=== PATIENT | female | born 1940 | race Caucasian/White ===

== ENCOUNTER 2016-11-19 09:54 | Day surgery (SDC) | payer MEDICARE, BC ==
--- NOTE | ~2016-11-19 | OP ---
Record Of Operation [facility] [address] [address] NAME: RITA REED : 40 STATUS : [facility]#: [id number] AGE: 76 ADM/REG DATE : 11/19/16 MR#: [id number] REPORT SERV DATE: 11/28/16 DICTATED BY: VICTOR HUGO BUCKNER DATE: 11/28/16 REPORT STATUS : Draft TRANSCRIBED BY: MODL DATE: 11/28/16 DATE OF PROCEDURE: 11/19/2016 PROCEDURE PERFORMED: Fiberoptic bronchoscopy, bronchoscopy with airway inspection. INDICATIONS: Aspiration episode with sensation of aspiration of food particles. The patient has had a persistent cough since. DESCRIPTION OF PROCEDURE: After risks and benefits were explained, informed consent was obtained. The patient received conscious sedation under the care of Anesthesiology. Bronchoscope inserted nasally and advanced beyond the vocal cords without difficulty. Topical anesthesia throughout was with lidocaine. The patient did have some changes of acute bronchitis in the lower respiratory tract with hyperemia, actually worse on the left than on the right with very friable mucosa on the left. We were able to visualize up to the first-order segmental bronchi and all the lobes and even to the second order and some of the lower lobe individual segments. We performed small lavages in each segment to look for presence of retained food particles and did not find any foreign bodies. There were no samples taken. IMPRESSION: Acute bronchitis consistent with history of aspiration, though with no residual food particles or foreign bodies found. MARKO/NATHANIEL Victor Hugo Buckner M.D. / [id number] CC: Clint Richard MD
[~2016-11-19 09:54] MED LIST: BERBERINE PO; CARDCD120 PO; CAT1 PO; CO Q-10100 MG PO; CO-Q-10 OTC PO; FLAG500TAB PO; FLECAINIDE50 MG PO; HAWTHORNE PO; INDAPAMIDE1.25 MG PO; KERATIN PO; KLONO1 PO; L-CARNITINE500 M1 PO; NATURE THYROID PO; NATURE-THROI64.8 MG PO; NORV25 PO; TAURINE PO; VITE PO; [UNRECOGNIZED DRUG - OTHER] PO; [UNRECOGNIZED DRUG - OTHER] PO
[2016-12-18] MEDS ORDERED: CAT1 PO (15:42)
[2016-12-18] MEDS ORDERED: VITAMIN B PO (15:43)
[2016-12-18] MEDS ORDERED: ALIGN4 MG PO (15:43)
[2016-12-18] MEDS ORDERED: VITAMIN D31000 UNIT PO (15:44)
[2016-12-18] MEDS ORDERED: MEPHYTON 5 MG TA5 MG PO (15:44)
[2017-01-15] MEDS ORDERED: COD LIVE1 PO (11:32)
[2017-01-15] MEDS ORDERED: KLOR-CON M1010 MEQ PO (11:32)
[2017-01-15] MEDS ORDERED: CURCUMIN PO (11:32)
[2017-01-15] MEDS ORDERED: L20 PO (11:33)
[2017-01-15] MEDS ORDERED: QUERCETIN DIHYDRATE PO (11:34)
[2017-01-15] MEDS ORDERED: LOP25 PO (11:34)
[2017-01-15] MEDS ORDERED: XARELTO20 MG PO ×2 (11:35→11:40)
[2017-01-15] MEDS ORDERED: [UNRECOGNIZED DRUG - OTHER] PO (11:35)
[2017-01-15] MEDS ORDERED: LIPOTRIAD1 CAP PO (11:35)
== END 2016-11-19 23:59 | disposition home health service (06) ==
LOC: DMU 09:54
PROVIDERS: Internal Medicine Pulmonary Disease
PROC: 0BJ08ZZ Inspection of Tracheobronchial Tree, Via Natural or Artificial Opening Endoscopic (ICD-10-PCS; principal; 2016-11-19 11:30)
DX: J20.9 Acute bronchitis, unspecified (principal); I10 Essential (primary) hypertension; G47.33 Obstructive sleep apnea (adult) (pediatric); E03.9 Hypothyroidism, unspecified; M81.0 Age-related osteoporosis without current pathological fracture; F41.9 Anxiety disorder, unspecified; F32.9 Major depressive disorder, single episode, unspecified; Z79.899 Other long term (current) drug therapy; Z88.8 Allergy status to other drugs, medicaments and biological substances; Z85.3 Personal history of malignant neoplasm of breast; Z98.51 Tubal ligation status; Z98.890 Other specified postprocedural states; Z99.81 Dependence on supplemental oxygen

== ENCOUNTER 2016-12-26 19:12 | Emergency (ER) | payer MEDICARE, BC ==
[2016-12-26 16:35] LABS: BASOPHILS 0.2 %; BASOPHILS ABSOLUTE 0.02 10/3/uL (0.0-0.16); EOSINOPHILS 0.4 %; EOSINOPHILS ABSOLUTE 0.05 10/3/uL (0.0-0.53); HEMATOCRIT 43.2 % (36.0-48.0); HEMOGLOBIN 14.7 g/dL (12.0-16.0); IMMATURE GRANULOCYTES 0.2 %; IMMATURE GRANULOCYTES ABSOLUTE 0.03 10/3/uL (0.0-0.11); LYMPHOCYTES 10.6 %; LYMPHOCYTES ABSOLUTE 1.31 10/3/uL (0.67-4.30); MEAN CORPUSCULAR VOLUME 94.1 fL (80-100); MEAN PLATELET VOLUME 9.8 fL (9.2-13.0); MONOCYTES 11.6 %; MONOCYTES ABSOLUTE 1.43 10/3/uL (0.21-1.20); NEUTROPHILS ABSOLUTE 9.51 10/3/uL (2.02-8.40); PLATELET COUNT 153 10/3/uL (150-400); RED CELL COUNT 4.59 10/6/uL (4.0-5.6)
[2016-12-26 16:39] LABS: ER CBC TAT 0 Hrs 12 Mins; MANUAL DIFF NO %; WHITE BLOOD CELLS 12.4 10/3/uL (4.5-10.5)
[2016-12-26 16:45] LABS: CALCIUM, SERUM 8.8 MG/DL (8.5-10.4); CHEST PAIN PROFILE TAT 0 Hrs 18 Mins; CHLORIDE, SERUM 94 MMOL/L (96-112); CO2 (CARBON DIOXIDE) 28 MMOL/L (24-34); CREATININE 0.74 MG/DL (0.55-1.02); GFR AFRICAN AMERICAN 91 ML/MIN (>=60); GFR NON AFRICAN AMERICAN 79 ML/MIN (>=60); POTASSIUM, SERUM 4.3 MMOL/L (3.5-5.3); TROPONIN I <0.02 NG/ML (<0.05)
[2016-12-26 16:46] LABS: BUN (BLOOD UREA NITROGEN) 21 MG/DL (6-23); GLUCOSE, SERUM 142 MG/DL (60-99); SODIUM, SERUM 130 MMOL/L (135-148)
[2016-12-26 16:49] LABS: INTERNATIONAL NORMAL RATI 1.1 UNITS (-); PARTIAL THROMBO TIME 40.8 SEC (22.5-37.2); PROTIME (NOT ORD) 13.6 SEC (12.0-14.5)
[2016-12-26 18:59] LABS: D-DIMER QUANTITATIVE 2.33 ug/mLFEU (< 0.50)
[~2016-12-26 19:12] MED LIST changes: +ALIGN4 MG PO; +MEPHYTON 5 MG TA5 MG PO; +VITAMIN B PO; +VITAMIN D31000 UNIT PO
[2017-01-15] MEDS ORDERED: CURCUMIN PO (11:32)
[2017-01-15] MEDS ORDERED: KLOR-CON M1010 MEQ PO (11:32)
[2017-01-15] MEDS ORDERED: COD LIVE1 PO (11:32)
[2017-01-15] MEDS ORDERED: L20 PO (11:33)
[2017-01-15] MEDS ORDERED: QUERCETIN DIHYDRATE PO (11:34)
[2017-01-15] MEDS ORDERED: LOP25 PO (11:34)
[2017-01-15] MEDS ORDERED: [UNRECOGNIZED DRUG - OTHER] PO (11:35)
[2017-01-15] MEDS ORDERED: XARELTO20 MG PO ×2 (11:35→11:40)
[2017-01-15] MEDS ORDERED: LIPOTRIAD1 CAP PO (11:35)
== END 2016-12-26 23:23 | disposition home or self-care (01) ==
LOC: ER 19:12
PROVIDERS: Emergency Medicine
DX: R07.9 Chest pain, unspecified (principal); K59.00 Constipation, unspecified; E87.1 Hypo-osmolality and hyponatremia; I10 Essential (primary) hypertension; I48.91 Unspecified atrial fibrillation; Z85.3 Personal history of malignant neoplasm of breast; Z95.0 Presence of cardiac pacemaker; Z88.8 Allergy status to other drugs, medicaments and biological substances; Z79.899 Other long term (current) drug therapy
CPT/HCPCS: 71020; 71275; 80048; 83735; 83880; 84484; 85025; 85379; 85610; 85730; 93005; 99285; A9270-GY; Q9967